=== PATIENT | female | born 1975 | race Two or more races ===

== ENCOUNTER 2024-07-08 08:20 | Emergency (ER) | payer MEDICAID, SELFPAY ==
[2024-07-08 08:33] VITALS: BP 145/85; PULSE 86; RESP 18; TEMP 37.1; O2SAT 98; BMI 38.4
--- NOTE | 2024-07-08 08:55 | XR_ITS ---
Examination: Duplex scan of the lower extremity, unilateral left complete Date and time of exam: July 08, 2024 0958 hours INDICATIONS: Ankle pain redness and edema beginning 3 weeks ago Technique: Duplex scan of the extremity veins using B-mode/grayscale imaging and Doppler spectral analysis and color flow Attention is directed to internal echogenicity, compression and augmentation involving these veins, color flow assessment, spectral analysis Findings: Major deep venous structures in the extremity demonstrate normal course and caliber. There is no evidence of deep vein thrombosis. Normal color flow and spectral analysis Impression: Negative for DVT..
--- NOTE | 2024-07-08 11:04 | PD.EDSKIN ---
ED Skin Abcess FB-RME/HPI General Chief complaint: Skin/Abscess/Foreign Body Stated complaint: cellulitis left leg x3 weeks Time Seen by Provider: 07/08/24 08:24 Arrival date/time: 07/08/24 08:20 48-year-old female presents emergency department today complains of a small area of erythema to the left lower leg ongoing x 3 weeks patient reports history of cellulitis requiring admission patient currently has no fever reports no nausea or vomiting no significant pain Limitations: no limitations Related Data Home Medications ?Medication ?Instructions ?Recorded ?Confirmed LIRAGLUTIDE (VICTOZA 2-OSCAR) subcut QDAY ##0 05/12/17 Metformin Hcl * (GLUCOPHAGE *) 500 mg PO BIDAC #0 tabs 05/12/17 Previous Rx's ?Medication ?Instructions ?Recorded loratadine 10 mg tablet 10 mg PO QDAY #30 tabs 09/11/20 meclizine 25 mg tablet 25 mg PO BID PRN dizziness #10 tabs 09/11/20 pseudoephedrine HCl 30 mg tablet 30 mg PO Q6H nasal congestion #20 09/11/20 (Sudafed) tabs clindamycin HCl 150 mg capsule 450 mg (3 x 150 mg) PO TID 7 days 07/08/24 #63 caps Allergies Allergy/AdvReac Type Severity Reaction Status Date / Time No Known Allergies Allergy Verified 07/08/24 08:22 Review of Systems Review of Systems Systems Reviewed: All systems reviewed, normal except as documented Constitutional Constitutional: Reports system reviewed and no additional complaints, except as documented, Denies fever(s) and Denies headache(s) Eyes Eyes: Reports system reviewed and no additional complaints, except as documented and Denies blurry vision ENT Ears, Nose, Mouth, and Throat: Reports system reviewed and no additional complaints, except as documented, Denies headache(s), Denies nasal congestion and Denies nasal discharge Cardiovascular Cardiovascular: Reports system reviewed and no additional complaints, except as documented, Denies chest pain and Denies dyspnea Respiratory Respiratory: Reports system reviewed and no additional complaints, except as documented, Denies chest congestion, Denies cough and Denies dyspnea Gastrointestinal Gastrointestinal: Reports system reviewed and no additional complaints, except as documented and Denies abdominal pain Integumentary/Breasts Skin/Breast: Reports system reviewed and no additional complaints, except as documented, Denies rash, Reports wounds (Cellulitis left lower extremity) and Reports other (Erythema left lower extremity) Neurologic Neurologic: Reports system reviewed and no additional complaints, except as documented, Reports as per HPI and Denies headache(s) Past Medical History Past Medical History NEUROLOGIC: Negative Neurological Disorders CARDIAC: Negative Cardiac Disorders ED Exam General Limitations: Present no limitations General appearance: Present alert and in no apparent distress Head Head exam: Present atraumatic Eye Eye exam: Present normal appearance, PERRL and EOMI ENT ENT exam: Present normal exam, normal oropharynx and mucous membranes moist Neck Neck exam: Present normal inspection, full ROM and trachea midline Chest Chest inspection: Present normal inspection and symmetric chest wall rise Respiratory Respiratory exam: Present normal lung sounds bilaterally Cardiovascular Cardiovascular exam: Present regular rate, normal rhythm and normal heart sounds Abdominal Exam Abdominal exam: Present soft and normal bowel sounds Extremities Exam Extremities exam: Present full ROM, tenderness, normal capillary refill and other (Left lower extremity erythema); Absent pedal edema, joint swelling or calf tenderness Back Exam Back exam: Present normal inspection and full ROM Neurological Exam Neurological exam: Present alert, oriented X3 and CN II-XII intact Psychiatric Psychiatric exam: Present normal affect and normal mood Skin Skin exam: Present warm, dry, intact and normal color Course Quality Measures none Orders Category Date Time Status US venous doppler LE LT Stat Exams 07/08/24 08:55 Completed Ibuprofen Tab [Motrin Tab] Med 07/08/24 08:55 Discontinued 800 mg PO X1 ONE Lidocaine 1% 20 ml [Xylocaine 1% 20 ML] Med 07/08/24 11:04 Discontinued 2.1 ml INFL X1 ONE cefTRIAXone [Rocephin] Med 07/08/24 11:04 Discontinued 1,000 mg IM X1 ONE Vital Signs Vital signs: Vital Signs Temperature 98.8 F 07/08/24 08:33 Pulse Rate 86 07/08/24 08:33 Respiratory Rate 18 07/08/24 08:33 Blood Pressure 145/85 H 07/08/24 08:33 Pulse Oximetry (%) 98 07/08/24 08:33 Oxygen Delivery Method Room Air 07/08/24 08:33 O2 saturation 98% room air within normal limits Skin / Abscess / Foreign Body MDM Narrative MDM Narrative:: 48-year-old female presents emergency department today complains of a small area of erythema to the left lower leg ongoing x 3 weeks patient reports history of cellulitis requiring admission patient currently has no fever reports no nausea or vomiting no significant pain On exam patient well-appearing patient does not appear ill or toxic patient does not appear to be in acute distress Ultrasound obtained no acute DVT noted Patient on Rocephin here discharge home with antibiotics no significant cellulitis or abscess patient does have mild cellulitis left lower extremity Patient discharged home in no distress to follow-up with primary care doctor in the next 24 to 48 hours and for any worsening symptoms to return to the ER immediately Patient data External records reviewed:: [facility] previous records Clinical information provided by:: patient Social determinants that could affect healthcare access:: none Patient has the following chronic illnesses:: See history How is presenting disease/condition affected by chronic disease/condition?: caused by Evaluation data The following diagnostics were reviewed and interpreted by me:: radiology exam(s) Lab and/or radiology exams considered but not ordered:: Radiology obtain Interpretation Summary: Reviewed by me Medications / Prescriptions Medications or Prescriptions considered but not ordered:: Given Medication administrations:: Medication Administration History Discontinued Medications Ceftriaxone Sodium (Ceftriaxone Sod Inj 1,000 Mg Vial) 1,000 mg IM X1 ONE Stop: 07/08/24 11:05 Last Admin: 07/08/24 11:33 Dose: 1,000 mg Documented By: DAVID Ibuprofen (Ibuprofen Tab 400 Mg Tablet) 800 mg PO X1 ONE Stop: 07/08/24 08:56 Last Admin: 07/08/24 09:03 Dose: Not Given Documented By: DAVID Non-Admin Reason: Discontinued Lidocaine HCl (Lidocaine Hcl 1% 20 Ml Vial) 2.1 ml INFL X1 ONE Stop: 07/08/24 11:05 Last Admin: 07/08/24 11:34 Dose: 2.1 ml Documented By: Given Consultations Consultation(s) initiated? (list below): No Diagnosis Skin/Abscess Differential Diagnosis: abscess of skin or subcutaneous tissue and cellulitis Most likely diagnosis given after review of the tests above:: Cellulitis Admission Indicated Admission indicated?: not indicated Admission Request Was there a request for admission?: No Disposition Plan Disposition Plan: Discharge Discharge Attestation Discharge Attestation: The patient and all family members were given an opportunity to ask questions and understood the discharge instructions. Discharge instructions specifically effects, indications for sooner follow up or return to the emergency department, and the expected course of current diagnosis. Patient condition: Stable Discharge Plan Plan Patient Disposition: HOME (Self Care) Disposition Comment: Stable Prescriptions/Referrals Prescriptions/Med Rec: New clindamycin HCl 150 mg capsule 450 mg PO TID 7 Days Qty: 63 0RF No Action LIRAGLUTIDE (VICTOZA 2-OSCAR) PEN.INJCTR Sub-Q QDAY Qty: 0 Metformin Hcl * (GLUCOPHAGE *) tablet 500 mg PO BIDAC Qty: 0 meclizine 25 mg tablet 25 mg PO BID PRN (Reason: dizziness) Qty: 10 0RF loratadine 10 mg tablet 10 mg PO QDAY Qty: 30 0RF pseudoephedrine HCl [Sudafed] 30 mg tablet 30 mg PO Q6H Qty: 20 0RF Referrals: Vivi Issa PA-C [Primary Care Provider] - In 1 week Problem List Clinical Impression: Cellulitis of left leg Patient/Caregiver Discharge Instructions Education Materials: ED Cellulitis Additional Instructions: Please follow up with your primary care doctor in the next 24-48hrs for any worsening symptoms return here immediately Print Language: [place] Islander Stand Alone Forms: Ivis Award Info., Work/School Release, Patient Portal Info Letter PA/SCAR Supervising Physician PA/SCAR Supervising Physician: Dr hsu
[2024-07-08 11:32] VITALS: BP 161/88; PULSE 73; RESP 17; TEMP 36.9; O2SAT 99
[2024-07-08] MEDS: cefTRIAXone SOD INJ 1,000 MG VIAL 1000 MG IM (11:33)
[2024-07-08] MEDS: LIDOCAINE HCL 1% 20 ML VIAL 2.1 ML INFL (11:34)
== END 2024-07-08 11:37 | disposition home or self-care (01) ==
PROVIDERS: Emergency Provider Emergency Medicine; PCP Physician Assistant Medical
DX: L03.116 Cellulitis of left lower limb (principal)
CPT/HCPCS: 93971; 96372; 99284; J0696; J3490

== ENCOUNTER 2024-10-20 08:21 | Emergency (ER) | payer MEDICAID, SELFPAY ==
[2024-10-20 08:40] VITALS: BP 160/80; PULSE 72; RESP 18; TEMP 36.6; O2SAT 95
--- NOTE | 2024-10-20 08:42 | XR_ITS ---
Examination: Tibia-Fibula, left , 2 views Technique: Tibia-fibula AP lateral 2 views Date and time of exam: October 20 0847 hours INDICATIONS: Redness swelling and pain involving the lower leg beginning June 2024 FINDINGS: Moderate osteopenia. No cortical bone destruction Soft tissue venous calcification No fracture IMPRESSION: No cortical bone destruction
--- NOTE | 2024-10-20 08:42 | XR_ITS ---
Examination: Duplex scan of the lower extremity, unilateral left complete Date and time of exam: October 20, 2024 0929 hours INDICATIONS: Onset left leg pain beginning 5 months ago Technique: Duplex scan of the extremity veins using B-mode/grayscale imaging and Doppler spectral analysis and color flow Attention is directed to internal echogenicity, compression and augmentation involving these veins, color flow assessment, spectral analysis Findings: Major deep venous structures in the extremity demonstrate normal course and caliber. There is no evidence of deep vein thrombosis. Normal color flow and spectral analysis Impression: Negative for DVT..
[2024-10-20 09:28] LABS: Basophils % (Auto) 0 % (0-2.5); Eosinophils % (Auto) 1 % (0-10); Hematocrit 42.5 % (36.0-46.0); Hemoglobin 14.6 g/dL (12.0-16.0); Immature Granulocytes % (Auto) 1 % (0-0); Immature Granulocytes Auto 0.04 Thou/mm3 (0.00-0.00); Lymphocytes # (Auto) 1.1 Thou/mm3 (1.0-4.8); Lymphocytes % (Auto) 17 % (10-50); Mean Corpuscular HGB Conc 34.4 g/dl (31.0-37.0); Mean Corpuscular Hemoglobin 30.3 pg (25.0-35.0); Mean Corpuscular Volume 88 fL (80-100); Monocytes # (Auto) 0.5 Thou/mm3 (0.0-0.8); Monocytes % (Auto) 8 % (0-12); Neutrophils # (Auto) 4.9 Thou/mm3 (1.8-7.7); Neutrophils % (Auto) 74 % (37-80); Nucleated Red Blood Cell % 0 /100 WBC (0); Platelet Count 342 Thou/mm3 (140-440); RDW Standard Deviation 43.4 fL (36.4-46.3); Red Blood Count 4.82 Miln/mm3 (4.00-5.20); White Blood Count 6.6 Thou/mm3 (3.6-11.0)
[2024-10-20 09:54] LABS: Alanine Aminotransferase 13 U/L (10-49); Albumin, Serum 4.6 gm/dL (3.5-5.0); Albumin/Globulin Ratio 1.6 (1.2-2.2); Alkaline Phosphatase 99 U/L (46-116); Anion Gap 10 (7-16); Aspartate Amino Transferase 11 U/L (0-34); BUN/Creatinine Ratio 23 Ratio (12-20); Bilirubin,Total 0.4 mg/dL (0.3-1.2); Blood Urea Nitrogen 23 mg/dL (9-23); Calcium 9.4 mg/dL (8.3-10.6); Calcium (Corrected) 9.4 mg/dL (8.5-10.1); Chloride 104 mMol/L (98-107); Globulin 2.8 gm/dL (2.3-3.5); Glucose 359 mg/dL (74-106); Osmolality,Calculated 293 (275-295); Potassium 4.2 mMol/L (3.4-5.1); Sodium 138 mMol/L (136-145); Total Protein 7.4 gm/dL (5.7-8.2); eGFR > 60 See Note
--- NOTE | 2024-10-20 09:59 | EDNOTE_ITS ---
Lower Extremity Injury RME/HPI General Chief Complaint: Ankle/Foot Injury Stated Complaint: LEFT LEG PAIN SINCE JULY Time Seen by Provider: 10/20/24 08:25 Arrival date/time: 10/20/24 08:21 49-year-old female presents emergency department today for complaints of left leg pain patient ports history of the same patient reports issues with his leg in the past and concerned about infection Limitations: no limitations Related Data Home Medications ?Medication ?Instructions ?Recorded ?Confirmed LIRAGLUTIDE (VICTOZA 2-OSCAR) subcut QDAY ##0 05/12/17 Metformin Hcl * (GLUCOPHAGE *) 500 mg PO BIDAC #0 tabs 05/12/17 Previous Rx's ?Medication ?Instructions ?Recorded loratadine 10 mg tablet 10 mg PO QDAY #30 tabs 09/11 meclizine 25 mg tablet 25 mg PO BID PRN dizziness # 10 tabs 09/11/20 pseudoephedrine HCl 30 mg tablet 30 mg PO Q6H nasal co ngestion #20 09/11/20 (Sudafed) tabs clindamycin HCl 300 mg capsule 300 mg PO TID 7 days #2 1 caps 10/20/24 Allergies Allergy/AdvReac Type Severity Reaction Status Date / Time No Known Allergies Allergy Verified 10/20/24 08:26 Review of Systems Review of Systems Systems Reviewed: All systems reviewed, normal except as documented Constitutional Constitutional: Reports system reviewed and no additional complaints, except as documented, Denies fever(s) and Denies headache(s) Eyes Eyes: Reports system reviewed and no additional complaints, except as documented and Denies blurry vision ENT Ears, Nose, Mouth, and Throat: Reports system reviewed and no additional complaints, except as documented, Denies headache(s), Denies nasal congestion and Denies nasal discharge Cardiovascular Cardiovascular: Reports system reviewed and no additional complaints, except as documented, Denies chest pain and Denies dyspnea Respiratory Respiratory: Reports system reviewed and no additional complaints, except as documented, Denies chest congestion, Denies cough and Denies dyspnea Gastrointestinal Gastrointestinal: Reports system reviewed and no additional complaints, except as documented and Denies abdominal pain Musculoskeletal Musculoskeletal: Reports system reviewed and no additional complaints, except as documented, Denies deformity and Reports other (leg pain ) Integumentary/Breasts Skin/Breast: Reports system reviewed and no additional complaints, except as documented and Denies rash Neurologic Neurologic: Reports system reviewed and no additional complaints, except as documented, Reports as per HPI and Denies headache(s) Past Medical History Past Medical History NEUROLOGIC: Negative Neurological Disorders CARDIAC: Negative Cardiac Disorders or Congestive Heart Failure RESPIRATORY: Negative Chronic Obstructive Pulmonary Disease (COPD) GENITOURINARY: Negative Renal Disease ENDOCRINE: Positive Diabetes Mellitus Type 2; Negative Diabetes Mellitus Type 1 Social History SMOKING STATUS: Never smoker ED Exam General Limitations: Present no limitations General appearance: Present alert and in no apparent distress Head Head exam: Present atraumatic Eye Eye exam: Present normal appearance, PERRL and EOMI ENT ENT exam: Present normal exam, normal oropharynx and mucous membranes moist Neck Neck exam: Present normal inspection, full ROM and trachea midline Chest Chest inspection: Present normal inspection and symmetric chest wall rise Respiratory Respiratory exam: Present normal lung sounds bilaterally Cardiovascular Cardiovascular exam: Present regular rate, normal rhythm and normal heart sounds Abdominal Exam Abdominal exam: Present soft and normal bowel sounds Extremities Exam Extremities exam: Present full ROM, tenderness (Left lower leg pain) and normal capillary refill; Absent pedal edema, joint swelling or calf tenderness Back Exam Back exam: Present normal inspection and full ROM Neurological Exam Neurological exam: Present alert, oriented X3 and CN II-XII intact Psychiatric Psychiatric exam: Present normal affect and normal mood Skin Skin exam: Present warm, dry, intact and normal color Course Quality Measures none Orders Category Date Time Status US venous doppler LE LT Stat Exams 10/20/24 08:42 Completed XR tibia fibula LT 2V Stat Exams 10/20/24 08:42 Completed CBC [CBC] Stat Lab 10/20/24 08:59 Completed CMP [Comprehensive Metabolic Panel] Stat Lab 10/20/24 08:59 Completed Vital Signs Vital signs: Vital Signs Temperature 97.9 F 10/20/24 08:40 Pulse Rate 72 10/20/24 08:40 Respiratory Rate 18 10/20/24 08:40 Blood Pressure 160/80 H 10/20/24 08:40 Pulse Oximetry (%) 95 10/20/24 08:40 Oxygen Delivery Method Room Air 10/20/24 08:40 O2 saturation 95% on room air within normal limits Extremity Injury, Lower MDM Narrative MDM Narrative:: 49-year-old female presents emergency department today for complaints of left leg pain patient ports history of the same patient reports issues with his leg in the past and concerned about infection Lab work and imaging obtained no acute emergent findings noted patient good capillary refill no numbness or tingling no coolness of extremity Patient be given a course of antibiotics no evidence of abscess Patient discharged home in no distress to follow-up with primary care doctor in the next 24 to 48 hours and for any worsening symptoms to return to the ER immediately Patient data External records reviewed:: [facility] previous records Clinical information provided by:: patient Social determinants that could affect healthcare access:: none Patient has the following chronic illnesses:: None How is presenting disease/condition affected by chronic disease/condition?: no chronic disease Evaluation data The following diagnostics were reviewed and interpreted by me:: lab results and radiology exam(s) Lab and/or radiology exams considered but not ordered:: Labs radiology obtain Interpretation Summary: Reviewed by me Medications / Prescriptions Medications or Prescriptions considered but not ordered:: Given Medication administrations:: Given Consultations Consultation(s) initiated? (list below): No Diagnosis Extremity Injury, Lower Differential Diagnosis: other (Leg pain) Most likely diagnosis given after review of the tests above:: Leg pain Admission Indicated Admission indicated?: not indicated Admission Request Was there a request for admission?: No Disposition Plan Disposition Plan: Discharge Discharge Attestation Discharge Attestation: The patient and all family members were given an opportunity to ask questions and understood the discharge instructions. Discharge instructions specifically effects, indications for sooner follow up or return to the emergency department, and the expected course of current diagnosis. Patient condition: Stable Discharge Plan Plan Patient Disposition: HOME (Self Care) Discharge Disposition comment: Stable Prescriptions/Referrals Prescriptions/Med Rec: New clindamycin HCl 300 mg capsule 300 mg PO TID 7 Days Qty: 21 0RF No Action LIRAGLUTIDE (VICTOZA 2-OSCAR) PEN.INJCTR Sub-Q QDAY Qty: 0 Metformin Hcl * (GLUCOPHAGE *) tablet 500 mg PO BIDAC Qty: 0 meclizine 25 mg tablet 25 mg PO BID PRN (Reason: dizziness) Qty: 10 0RF loratadine 10 mg tablet 10 mg PO QDAY Qty: 30 0RF pseudoephedrine HCl [Sudafed] 30 mg tablet 30 mg PO Q6H Qty: 20 0RF Referrals: Vivi Issa PA-C [Primary Care Provider] - 10/21/24 Problem List Clinical Impression: Left leg pain, Poorly controlled diabetes mellitus Patient/Caregiver Discharge Instructions Education Materials: ED RICE Additional Instructions: Please follow up with your primary care doctor in the next 24-48hrs for any worsening symptoms return here immediately Print Language: [place] Stand Alone Forms: Ivis Award Info., Patient Portal Info Letter PA/ANDROID IOS DEVELOPER Supervising Physician PA/ANDROID IOS DEVELOPER Supervising Physician: Dr. blancas
== END 2024-10-20 10:18 | disposition home or self-care (01) ==
PROVIDERS: Nurse Practitioner Primary Care; Emergency Provider Emergency Medicine; PCP Physician Assistant Medical
DX: M79.605 Pain in left leg (principal); E11.65 Type 2 diabetes mellitus with hyperglycemia
CPT/HCPCS: 36415; 73590; 80053; 85025; 93971; 99284

== ENCOUNTER → 2024-11-20 | Outpatient (CLI) | payer MEDICAID, SELFPAY ==
--- NOTE | 2024-11-20 15:52 | XR_ITS ---
Examination: Knee, right , 3 views Technique: Knee AP, lateral, oblique 3 views Date and time of exam: November 17, 2024 1534 hours INDICATION: Right knee pain one month. FINDINGS: [id number] tricompartment osteoarthritis, most prominent patellofemoral joint No fracture Small knee effusion IMPRESSION: [id number] right knee tricompartment osteoarthritis
== END | disposition home or self-care (01) ==
PROVIDERS: PCP Physician Assistant Medical; Referring Provider Physician Assistant Medical; Visit Provider Physician Assistant Medical
DX: M17.11 Unilateral primary osteoarthritis, right knee (principal)
CPT/HCPCS: 73562

== ENCOUNTER → 2025-03-10 | Outpatient (CLI) | payer MEDICAID, SELFPAY ==
--- NOTE | 2025-03-10 16:15 | XR_ITS ---
Exam: MRI knee without contrast, right Date and time of exam: March 10, 2025, 1710 hrs. Indications: Severe knee pain and swelling beginning 3 months ago joint clicking and weakness Technique: Multiple axial, coronal, and sagittal sections on the knee have been obtained. T2-Weighted sagittal, fat-suppressed images, TR 3,500, TE 62, T2 weighted coronal fat-saturated images, TR 3,500, TE 62 Proton density sagittal sections, TR 1800, TE 31. T-1 weighted coronal images, TR 524, TE 13.0 Findings: Medial meniscus anterior horn intact. Medial meniscus, body is abnormal, extruded from the joint space and replaced by isointense signal, with meniscocapsular separation. Posterior horn medial meniscus horizontal linear tear communicating inner margin. Lateral meniscus anterior horn is intact Lateral meniscus, body is intact Posterior horn lateral meniscus is intact Anterior cruciate ligament high-grade sprain Posterior cruciate ligament appears intact. Knee effusion is moderate. Quadriceps and patellar tendons appear intact. There is no evidence of tendinosis. Inflammatory change or fracture of Hoffa's fat pad is not seen. Medial patellar facet demonstrates severe thinning. Lateral patellar facet cartilage demonstrates severe thinning. Trochlear cartilage demonstrates severe thinning. Marrow signal adequate. Medial collateral ligament appears intact. Illiotibial band and fibular collateral ligament are intact. Biceps femoris tendons appear intact. Medial femoral condylar articular cartilage demonstrates severe thinning. Lateral femoral condylar articular cartilage demonstratessevere thinning. Tibial plateau cartilage demonstrates severe thinning. Impression: Severe tricompartment joint narrowing Extensive medial meniscus tears High-grade sprain anterior cruciate ligament Meniscocapsular separation body of the medial meniscus
== END | disposition home or self-care (01) ==
LOC: SMRI 16:36
PROVIDERS: PCP Physician Assistant Medical; Referring Provider Physician Assistant Medical; Visit Provider Physician Assistant Medical
DX: M25.861 Other specified joint disorders, right knee (principal); S83.241A Other tear of medial meniscus, current injury, right knee, initial encounter; S83.511A Sprain of anterior cruciate ligament of right knee, initial encounter; S83.194A Other dislocation of right knee, initial encounter; X58.XXXA Exposure to other specified factors, initial encounter
CPT/HCPCS: 73721